=== PATIENT | male | born 1980 | race African-American/Black ===

== ENCOUNTER → 2018-05-02 11:33 | Outpatient (CLI) | payer OTHER, SELFPAY ==
--- NOTE | 2018-05-02 | DI.MRI.S_ITS ---
PROCEDURE: MR FEMUR RT WO CON INDICATIONS: Strain of right quadriceps muscle, fascia and tend TECHNIQUE: Noncontrast coronal and sagittal T1 spin echo and STIR; axial T1 spin echo and T2 fast spin echo with fat saturation through the right femur. COMPARISON: None. FINDINGS: Image quality: Excellent. Bones: The visualized bone marrow demonstrates normal signal on all sequences. The overlying cortex appears intact. No fractures lines or intra-osseous lesions. Soft tissues: Severe sprain/partial tear of the rectus femoris muscle, with associated hematoma demonstrating fluid fluid level measuring 1.8 x 3.1 cm in cross-sectional dimension on axial image 2 series 9. This is between the rectus femoris and vastus intermedius muscles and measures approximately 12.0 cm in the cephalocaudad dimension. There is surrounding muscle edema and T2 hyperintensity. The remaining muscle signal intensity within normal limits.. IMPRESSION: Severe strain/partial tear of the right rectus femoris muscle, with associated hematoma as measured above. Dictated by: Lito Snyder M.D. on 05/02/2018 at 13:18 Approved by: Lito Snyder M.D. on 05/02/2018 at 13:24
== END ==
PROVIDERS: Visit Provider General Practice
DX: S76.111A Strain of right quadriceps muscle, fascia and tendon, initial encounter (principal)
CPT/HCPCS: 73718

== ENCOUNTER → 2019-05-31 18:56 | Outpatient (CLI) | payer OTHER, SELFPAY ==
--- NOTE | 2019-05-31 | DI.MRI.S_ITS ---
PROCEDURE: MR HIP RT WO CON INDICATIONS: RT HIP AND LOW BACK PAIN TECHNIQUE: Noncontrast coronal T1 spin echo and STIR through the bony pelvis. Coronal and axial T2 fast spin echo with fat saturation, sagittal T1 spin echo, and oblique axial T2 fast spin echo with fat saturation through the hip. COMPARISON: None. FINDINGS: Image quality: Excellent. Bones and joints: Bone marrow of the pelvic ring and proximal femurs show normal signal throughout. No intraosseous lesions or fractures. No avascular necrosis of the femoral heads. The visualized lower lumbar spine appears normally aligned. Tendons and ligaments: The gluteus medius and minimus tendons appear intact, without associated muscle atrophy. The nearby proximal iliotibial band also appears intact. The iliopsoas tendon appears intact, without adjacent bursal fluid collections or evidence for impingement syndrome. The origin of the hamstring tendon is intact at the ischial tuberosity, as well as the associated sacrotuberous ligament. The straight and reflected heads of the rectus femoris muscle origin appear intact, as well as the conjoint tendon. The ligamentum teres appears intact where visualized. Labrum and cartilage: There is a small anterior labral tear (series 4, image 10). Normal Cartilage surface of the femoral head appears of normal thickness. The alpha angle of the femur is within normal limits at less than 55 degrees. Soft tissues: Visualized muscles demonstrate normal bulk and internal signal. Quadratus femoris muscle demonstrates no internal edema to suggest ischiofemoral impingement. The proximal sciatic neurovascular bundle appears normal adjacent to the hamstring tendons. No free pelvic fluid. Bladder wall thickness is normal. Genitourinary structures and bowel loops appear normal where visualized. IMPRESSION: Small anterior acetabular labral tear. Dictated by: Nany Gary MD, PhD on 06/02/2019 at 8:48 Approved by: Nany Gary MD, PhD on 06/03/2019 at 8:49
--- NOTE | 2019-05-31 | DI.MRI.S_ITS ---
PROCEDURE: MR LUMBAR SPINE WO CON INDICATIONS: RT HIP ND LOW BACK PAIN TECHNIQUE: Noncontrast sagittal T1 spin echo and T2 fast echo, sagittal STIR, axial T1 and T2 fast spin echo through the lumbar spine. In cases with scoliosis, additional coronal T2 fast spin echo may be performed. COMPARISON: None. FINDINGS: Image quality: Excellent. Alignment and Curvature: There is normal bony alignment. Bone Marrow: Marrow is of normal overall signal. No acute vertebral body compression fractures. Spinal Cord: Conus medullaris terminates at the L1 level. Visualized cord demonstrates normal signal and size. Paraspinous Soft Tissues: No paravertebral masses. L1-L2: Normal appearance. L2-L3: Normal appearance. L3-L4: Normal appearance. L4-L5: Loss of disc signal. Moderate, diffuse disc bulge. Moderate-sized central disc protrusion. Severe narrowing of the central canal secondary to disc disease with compression of the traversing nerve roots of cauda equina. Mild bilateral neural foraminal narrowing. L5-S1: Loss of the signal. Mild, diffuse disc bulge. Small central disc protrusion. Epidural lipomatosis. Severe narrowing of the central canal secondary to disc disease and epidural lipomatosis. No neural foraminal narrowing. IMPRESSION: 1. Mild L4-L5 and L5-S1 degenerative disc disease. 2. Severe L4-L5 central canal stenosis with marked compression of the nerve roots of cauda equina. Severe L5-S1 central canal narrowing without definite compression of the nerve roots of cauda equina. 3. Mild bilateral L4-L5 neural foraminal narrowing. Dictated by: Nany Gary MD, PhD on 06/02/2019 at 8:49 Approved by: Nany Gary MD, PhD on 06/02/2019 at 8:52
--- NOTE | 2019-05-31 | DI.MRI.S_ITS ---
PROCEDURE: MR HIP LT WO CON INDICATIONS: HIP PAIN TECHNIQUE: Noncontrast coronal T1 spin echo and STIR through the bony pelvis. Coronal and axial T2 fast spin echo with fat saturation, sagittal T1 spin echo, and oblique axial T2 fast spin echo with fat saturation through the hip. COMPARISON: None. FINDINGS: Image quality: Excellent. Bones and joints: Bone marrow of the pelvic ring and proximal femurs show normal signal throughout. No intraosseous lesions or fractures. No avascular necrosis of the femoral heads. The visualized lower lumbar spine appears normally aligned. Tendons and ligaments: The gluteus medius and minimus tendons appear intact, without associated muscle atrophy. The nearby proximal iliotibial band also appears intact. The iliopsoas tendon appears intact, without adjacent bursal fluid collections or evidence for impingement syndrome. The origin of the hamstring tendon is intact at the ischial tuberosity, as well as the associated sacrotuberous ligament. The straight and reflected heads of the rectus femoris muscle origin appear intact, as well as the conjoint tendon. The ligamentum teres appears intact where visualized. Labrum and cartilage: There is a small tear the anterior labrum (series 9, image 16). Cartilage surface of the femoral head appears of normal thickness. The alpha angle of the femur is within normal limits at less than 55 degrees. Soft tissues: Visualized muscles demonstrate normal bulk and internal signal. Quadratus femoris muscle demonstrates no internal edema to suggest ischiofemoral impingement. The proximal sciatic neurovascular bundle appears normal adjacent to the hamstring tendons. No free pelvic fluid. Bladder wall thickness is normal. Genitourinary structures and bowel loops appear normal where visualized. IMPRESSION: Small anterior acetabular labral tear. Dictated by: Nany Gary MD, PhD on 06/02/2019 at 8:48 Approved by: Nany Gary MD, PhD on 06/03/2019 at 8:46
== END ==
PROVIDERS: Visit Provider Student in an Organized Health Care Education/Training Program
DX: M25.551 Pain in right hip (principal); M25.552 Pain in left hip; M54.5 Low back pain; M51.36 Other intervertebral disc degeneration, lumbar region; M51.37 Other intervertebral disc degeneration, lumbosacral region; M48.061 Spinal stenosis, lumbar region without neurogenic claudication; M48.07 Spinal stenosis, lumbosacral region; S73.192A Other sprain of left hip, initial encounter; S73.191A Other sprain of right hip, initial encounter
CPT/HCPCS: 72148; 73721